=== PATIENT | male | born 1955 | race Caucasian/White ===

== ENCOUNTER 2019-06-17 08:10 | Day surgery (SDC) | payer MEDICARE, OTHER, SELFPAY ==
[2019-06-16 09:02] VITALS: BMI 22.9
[2019-06-17] MEDS: sodium chloride 0.9% 1,000 ML 30 ML (08:30)
[2019-06-17 08:32] VITALS: BP 114/75; PULSE 68; RESP 16; TEMP 36.6; O2SAT 96
--- NOTE | 2019-06-17 08:48 | ANES.PREANES ---
Pre-Anesthetic Assessment Pre-Anesthetic Assessment: Height/Weight: Height 1.83 m Weight 76.657 kg Temp Pulse Resp BP Pulse Ox 97.9 F 68 16 114/75 96 06/17/19 08:32 06/17/19 08:32 06/17/19 08:32 06/17/19 08:32 06/17/19 08:32 Preop Diagnosis: BE Proposed Procedure: Operation Date: 06/17/19 09:00 Proposed Procedures p EGD(Not Applicable) - Samuel Hoover MD Familial anesthetic complications: Mom was slow to wake Was Beta Reilly taken within 24 hours: Yes Last intake: Intake Last Liquid Date 06/16/19 Last Liquid Time 22:00 Last Solid Date 06/16/19 Last Solid Time 18:00 Last Intake: 18:30 Social: Social History: Tobacco (stop 4 yrs ago) and No alcohol Exam: Pre-Anes Outpt Exam: alert, oriented x 3, clear to auscultation bilaterally and regular rate & rhythm Airway: Submandibular: WNL Cervical ROM: WNL MP: 2 Pulmonary: Pulmonary: COPD CV/HEM: CV/HEM: Arrythmia and Palp Comments: tachycardia : : None reported Hepatic: Hepatic: None reported GI: GI: GERD Comments: controlled Metabolic: Metabolic: None reported Musc/skel: Musc/skel: Lower Back Pain and OA/DJD Comments: back surgery x2 Neuropsych: Neuropsych: None reported Anesthetic Plan: ASA status: II Anesthesia: Anesthesia Evaluation and MAC Risk of > 500 ml blood loss (7ml/kg in children): No PFSH Anesthesia PFSH: Medical History (Updated 06/16/19 @ 14:[address] LPN) GERD (gastroesophageal reflux disease) (Acute) Social History Smoking and tobacco status: current some day smoker Alcohol intake: never Data Anesthesia Cardiac Studies: No Data to Display
--- NOTE | 2019-06-17 09:12 | PM.HPUD ---
H&P update H&P Update: DATE OF SURGERY/PROCEDURE: 06/17/19 DATE H&P PERFORMED: 06/13/19 H&P UPDATE INFORMATION: H&P completed within last 30 days, No changes to prior documentation and H&P is in [facility] EMR on date indicated PLANNED PROCEDURE: Operation Date: 06/17/19 09:00 Proposed Procedures p EGD(Not Applicable) - Samuel Hoover MD Full H&P Perinent History: Medical/Surgical History: Medical History (Updated 06/13/19 @ 16:09 by Samuel Hoover MD) GERD (gastroesophageal reflux disease) (Acute) Family History: Family History (Updated 06/03/19 @ 09:35 by Ivone Zhu LPN) Brother Cancer PROSTATE CA Mother Cancer LUNG CA Other Hypertension Social History: Social History Smoking and tobacco status: current some day smoker Alcohol intake: never
[2019-06-17 09:26] VITALS: BP 105/70; PULSE 67; RESP 16; TEMP 36.2; O2SAT 97
--- NOTE | 2019-06-17 09:36 | ANE.PACU ---
 Inpatient post-anesthesia follow up: Airway intact: Yes Vital signs: Temperature 97.2 F Pulse Rate [Bilate ral Radial] 67 Respiratory Rate 16 Blood Pressure [Le ft Arm] 105/70 Pulse Oximetry 97 Oxygen Delivery Me thod Nasal Cannula Oxygen Flow Rate 2.0 Fraction of Inspir ed Oxygen Hydration adequate: Yes Nausea and vomiting: No Pain level: 1 Mental status: Baseline
[2019-06-17 09:37] VITALS: BP 108/77; PULSE 68; RESP 18; O2SAT 96
== END 2019-06-17 09:43 | disposition home or self-care (01) ==
PROVIDERS: Family Provider Family Medicine; PCP Internal Medicine; Visit Provider Internal Medicine
PROC: 0DJ08ZZ Inspection of Upper Intestinal Tract, Via Natural or Artificial Opening Endoscopic (ICD-10-PCS; CPT 43235; principal; 2019-06-17 09:00)
DX: K22.70 Barrett's esophagus without dysplasia (principal); K21.0 Gastro-esophageal reflux disease with esophagitis; K44.9 Diaphragmatic hernia without obstruction or gangrene; F17.210 Nicotine dependence, cigarettes, uncomplicated; Z82.49 Family history of ischemic heart disease and other diseases of the circulatory system; Z80.1 Family history of malignant neoplasm of trachea, bronchus and lung; Z80.42 Family history of malignant neoplasm of prostate
CPT/HCPCS: 12345; 43235; 96365; J0171; J2704; J7030

== ENCOUNTER 2019-10-03 09:24 | Outpatient (CLI) | payer MEDICARE, OTHER, SELFPAY ==
--- NOTE | 2019-10-03 09:33 | XR_ITS ---
WS: [id number] PROCEDURE: XR chest 2V* [id number] CLINICAL INFORMATION: HYPERHIDROSIS COMPARISON: June 16, 2013 FINDINGS: Heart: Normal cardiac silhouette. Lungs: Moderate chronic emphysematous changes. No acute pulmonary infiltrates. No focal pneumonia. Bones: Chronic right posterior rib fractures with callus formation. XR/XR chest 2V* [id number] IMPRESSION: 1. Moderate chronic emphysematous changes. No acute pulmonary infiltrates. 2. Chronic right posterior rib fractures with callus formation.
== END 2019-10-03 09:25 | disposition home or self-care (01) ==
PROVIDERS: Family Provider Family Medicine; PCP Nurse Practitioner Family; Visit Provider Nurse Practitioner Family
DX: R61 Generalized hyperhidrosis (principal); J43.9 Emphysema, unspecified
CPT/HCPCS: 71046

== ENCOUNTER 2019-11-09 06:58 | Outpatient (CLI) | payer MEDICARE, OTHER, SELFPAY ==
--- NOTE | 2019-11-09 07:08 | US_ITS ---
WS: [id number] ABDOMINAL ULTRASOUND REASON FOR EXAM: GENERALIZED ABD PAIN TECHNIQUE: Grayscale and Doppler ultrasound examination of the abdomen. FINDINGS: Pancreas: Within normal limits Abdominal aorta and IVC: Within normal limits. Liver: Liver measures 18.1 cm in length. Normal hepatopedal circulation. Gallbladder: Gallbladder wall thickness measures 0.2 cm. No gallstones identified. Common bile duct m easured 0.37 cm Left kidney: Left kidney measures 10.5 cm x 5.3 cm x 5.7 cm. Hydronephrosis no stones Right kidney: Right kidney measures 10.2 cm x 5.2 cm x 5.1 hydronephrosis no stones Spleen: Spleen measures 8.94 cm US/US abdomen complete* [id number] IMPRESSION: Normal abdominal survey by ultrasound.
== END 2019-11-09 06:59 | disposition home or self-care (01) ==
LOC: US 07:01
PROVIDERS: PCP Family Medicine; Visit Provider Nurse Practitioner Family
DX: R10.84 Generalized abdominal pain (principal)
CPT/HCPCS: 76700

== ENCOUNTER 2020-05-16 14:27 | Outpatient (CLI) | payer MEDICARE, OTHER, SELFPAY ==
--- NOTE | 2020-05-16 14:36 | XR_ITS ---
WS: [id number] SCREENING DEXA SCAN [place] CLINICAL INFORMATION: OSTEOPENIA OF LUMBAR SPINE COMPARISON: FINDINGS: The L1-L4 bone mineral density measures 1.002 g/cm2. This corresponds to a T score score of -1.8 and Z score of -1.1. Left femoral neck bone mineral density measures 0.902 g/cm2. This corresponds to a T score of -1.4 an d Z score of -0.6. Right femoral neck bone mineral density measures 0.907 g/cm2. This corresponds to a T score -1.3of an d Z score of -0.6. Mean femoral neck bone mineral density measures 0.905 g/cm2. This corresponds to a T score of -1.4 an d Z score of -0.6. XR/XR DEXA axial skeleton* [id number] IMPRESSION: Osteopenia Patient's FRAX calculated 10 year probability for major osteoporotic fracture i s 11.5 % and osteoporotic hip fracture is 2.7%.
== END 2020-05-16 14:28 | disposition home or self-care (01) ==
LOC: RADWPI 14:32
PROVIDERS: PCP Family Medicine; Visit Provider Nurse Practitioner Family
DX: M85.88 Other specified disorders of bone density and structure, other site (principal)
CPT/HCPCS: 77080

== ENCOUNTER 2020-07-16 07:02 | Outpatient (CLI) | payer MEDICARE, OTHER, SELFPAY ==
--- NOTE | 2020-07-16 07:05 | CT_ITS ---
WS: [id number] LDCT LUNG CANCER SCREENING TECHNIQUE: Noncontrast CT of the chest with coronal and sagittal reformatted images. CLINICAL INFORMATION: H/O TOBACCO USE COMPARISON: CT chest , September 2017, August 2016 DLP: 62.9 mGy.cm DIvol: 1.[address] scans at [facility] use at least one of these dose optimization techniques: automat ed exposure control; mA and/or kV adjustment per patient size (includes targeted exams where dose is matched to clinical indication); or iterative reconstruction. FINDINGS:4.3 mm noncalcified pulmonary nodule right lower lobe along the fissure is unchanged since . This is stable since 2018. Mild chronic emphysematous changes. No acute pulmonary infiltrates. No consolidation or pleural fluid . Fibrosis in the lung apices. Aortic calcification. No mediastinal or hilar lymphadenopathy. No axillary lymphadenopathy. Adrenal glands are normal. Normal GE junction. Mild chronic compression superior endplate T3 T6 and T12 unchanged. CT/CT lung screening [id number] IMPRESSION: LUNG-RADS: 2-Benign Appearance or Behavior FOLLOW UP: 12 Month: Continue annual screening with LDCT
== END 2020-07-16 07:03 | disposition home or self-care (01) ==
LOC: RAD 07:04
PROVIDERS: PCP Family Medicine; Visit Provider Nurse Practitioner Family
DX: Z12.2 Encounter for screening for malignant neoplasm of respiratory organs (principal); Z87.891 Personal history of nicotine dependence
CPT/HCPCS: 71271

== ENCOUNTER 2021-09-10 12:03 | Outpatient (CLI) | payer MEDICARE, OTHER, SELFPAY ==
--- NOTE | 2021-09-10 12:13 | CT_ITS ---
WS: [id number] LDCT LUNG CANCER SCREENING HISTORY: HX OF TOBACCO USE TECHNIQUE: Axial imaging performed from the apices to 1 cm below the costophrenic angles. Coronal and sagittal reformats are submitted with axial MIP series. All CT scans at [facility] use at least one of these dose optimization techniques: automated exposure control; mA and/or kV adjustment per patient size (includes targeted exams where dose is matched to clinical indication); or iterativ e reconstruction. DLP: 87.61 mGy.cm DIvol: Mean CTDIvol: 1.60 (mGy) COMPARISON: 07/14/2020 Diagnostic quality: Satisfactory Lung Nodules: Moderate biapical pleural thickening is stable. Again noted is a 4 mm nodule along the inferior RIGHT superior major fissure which is stable. No new mass or nodule. No endobronchial lesion s. Lungs: Hyperinflated lungs from emphysema. Heart: Normal size heart. No pericardial effusion. Mild scattered coronary artery atherosclerotic dina que. Other findings: Mild atherosclerosis thoracic aorta. Normal size pulmonary artery. T12 compression fracture superior endplate by 10%, No change. Additional mild compression deformities at T3 and T6. CT/CT lung screening [id number] IMPRESSION: LUNG-RADS: 2-Benign Appearance or Behavior FOLLOW UP: 12 Month: Continue annual screening with LDCT OTHER FINDINGS (S MODIFIER): None.
== END 2021-09-10 12:04 | disposition home or self-care (01) ==
LOC: RAD 12:06
PROVIDERS: PCP Family Medicine; Visit Provider Nurse Practitioner Family
DX: Z12.2 Encounter for screening for malignant neoplasm of respiratory organs (principal); Z87.891 Personal history of nicotine dependence
CPT/HCPCS: 71271

== ENCOUNTER 2022-09-05 09:17 | Outpatient (CLI) | payer MEDICARE, OTHER, SELFPAY ==
--- NOTE | 2022-09-05 09:31 | CT_ITS ---
WS: [id number] LDCT LUNG CANCER SCREENING TECHNIQUE: Noncontrast CT of the chest with coronal and sagittal reformatted images. CLINICAL INFORMATION: HX OF TOBACCO USE/ NICOTINE DEPENDENCE COMPARISON: CT September 10, 2021 DLP: 65.28 mGy.cm DIvol: Mean CTDIvol: 1.10 (mGy) All CT scans at [facility] use at least one of these dose optimization techniques: automat ed exposure control; mA and/or kV adjustment per patient size (includes targeted exams where dose is matched to clinical indication); or iterative reconstruction. FINDINGS: Stable 4 mm nodule along the inferior RIGHT major fissure. 4 mm nodule along the LEFT fissure. Modera te chronic emphysematous changes. Hyperinflation. Coronary calcification. Aortic calcification. Azul l caliber thoracic aorta. No mediastinal or hilar lymphadenopathy. Normal GE junction. Adrenal glands are normal. Stable biapical fibrosis. Mild compression deformities at T12, T6, T3 unchanged. CT/CT lung screening [id number] IMPRESSION: LUNG-RADS: 2-Benign Appearance or Behavior FOLLOW UP: 12 Month: Continue annual screening with LDCT
== END 2022-09-05 09:18 | disposition home or self-care (01) ==
LOC: RAD 09:22
PROVIDERS: PCP Electrodiagnostic Medicine; Visit Provider Electrodiagnostic Medicine
DX: Z12.2 Encounter for screening for malignant neoplasm of respiratory organs (principal); Z87.891 Personal history of nicotine dependence
CPT/HCPCS: 71271

== ENCOUNTER 2023-07-06 09:39 | Outpatient (CLI) | payer MEDICARE, OTHER, SELFPAY ==
[2023-07-06 09:52] VITALS: BMI 23.0
--- NOTE | 2023-07-06 09:52 | ECG_ITS ---
[facility] Test Date: 2023-07-06 Pat Name: Fernandez Espinoza Department: Room: Gender: Male [employer] Adf Developer: Belinda VazquezChay : 1955 Requested By: Goyo Dee Order Number: [id number] William MD: Jese Alfonso M.D. Interpretive Statements NAME OF STUDY: LEXISCAN SESTAMIBI STRESS TEST INDICATION: [Chest Pain, ] Procedure: At the baseline, the blood pressure was 122/80 mmHg with a heart rate of 61 bpm. The electrocardiogram showed normal sinus rhythm, normal axis with normal ST and T's. The Lexiscan was infused over a period of 20 seconds. A total of 0.4 mg of Lexiscan was infused. The stress phase was continued for a total of 5 minutes. Heart rate was at the end of stress phase was 95 bpm and a blood pressure of 134/76 mmHg. The EKG at the peak infusion revealed normal sinus rhythm with no significant ST-T wave changes. Sestamibi was injected 20 seconds after the Lexiscan infusion. Blood pressure at the end of recovery phase was 137/79 mmHg with a heart rate of 89 bpm. Conclusion: 1. Normal EKG response to Lexiscan infusion 2. No Lexiscan induced chest pain or cardiac arrhythmia. 3. Normal blood pressure and heart rate response. 4. Sestamibi/sestamibi perfusion scan pending; see separate report. Electronically Signed On 07-17-2023 11:55:59 HAND QUILTER by Jese Alfonso M.D. [email or web address]
--- NOTE | 2023-07-06 09:52 | NMCV_ITS ---
NM daniel perf SPECT r/s* [id number] Fernandez Espinoza Age: 68 Gender: M : 1955 Exam Date: 07/06/2023 10:41 Ordering Phys: Goyo Cain DO Technologist: TAMAR Tellez Exam Location: [facility] Indications: CHEST PAIN STRESS TEST Please see separate stress test report in [facility] for full findings IMAGE PROTOCOL Rest/Stress 1 Lexiscan Day Radiopharmaceutical Dose (mCi) Administration Site Administered by Rest: Tc-99m 10.7 IV TAMAR Gates Sestamibi Stress:Tc-99m 32.5 IV TAMAR Gates Sestamibi Rest: 06-Jul-2023 60 Discovery 630 Stress: 06-Jul-2023 30 Discovery 630 0.4mg Lexiscan. Images obtained in supine and prone position. SPECT RESULTS Technical Quality: Excellent Raw Data Analysis: Normal Image Corrections: No attenuation or motion correction applied Summed Stress Score: 3 Summed Rest Score: 3 Summed Difference Score: 1 PERFUSION FINDINGS There is a medium sized area of fixed perfusion defect noted in the inferolateral wall. This is consistent with medium sized area of prior infarct with no significant radha-infarct ischemia. FUNCTIONAL RESULTS (calculated via Gated SPECT) Stress Image LV EF (%): 64 Stress EDV (mL):70 TID: 1.02 Stress ESV (mL):25 FUNCTIONAL FINDINGS: There is normal left ventricular systolic function. IMPRESSIONS 1. 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 No evidence of ischemia 2. LV systolic function is normal Jese Alfonso MD (Electronically Signed) Final Date: 06 July 2023 14:14 S
[2023-07-06] MEDS: regadenoson 0.4 Mg/5 ml Syringe IVP (11:16)
[2023-07-06 11:24] VITALS: BP 137/79; PULSE 89
== END 2023-07-06 09:40 | disposition home or self-care (01) ==
LOC: CDL 09:40
PROVIDERS: PCP Electrodiagnostic Medicine; Visit Provider Electrodiagnostic Medicine
DX: R07.9 Chest pain, unspecified (principal)
CPT/HCPCS: 36415; 78452; 93017; 96374; A9500; J2785

== ENCOUNTER 2023-07-21 10:50 | Outpatient (CLI) | payer MEDICARE, OTHER, SELFPAY ==
[2023-07-21 11:01] VITALS: PULSE 86; RESP 18; O2SAT 98
[2023-07-21] MEDS: albuterol 2.5 mg/3 mL Neb INHALATION (11:01)
[2023-07-21 11:06] VITALS: PULSE 85
== END 2023-07-21 10:51 | disposition home or self-care (01) ==
PROVIDERS: PCP Electrodiagnostic Medicine; Visit Provider Electrodiagnostic Medicine
DX: J44.9 Chronic obstructive pulmonary disease, unspecified (principal)
CPT/HCPCS: 94060; 94726; 94729; J7613

== ENCOUNTER 2023-07-29 14:55 | Emergency (ER) | payer MEDICARE, OTHER, SELFPAY ==
[2023-07-29 14:59] VITALS: BP 130/75; PULSE 95; RESP 18; TEMP 36.3; O2SAT 98
--- NOTE | 2023-07-29 15:05 | XRR_ITS ---
PROCEDURE INFORMATION: Exam: XR Right Shoulder Exam date and time: 07/29/2023 3:19 PM Age: 68 years old Clinical indication: Injury or trauma; Other: Tree fell on PT; Blunt trauma (contusions or hematomas); Injury details: Right shoulder injury, states he was cutting trees and one fell knocking him to the ground. PT states the shoulder felt dislocated and he feels like he popped it part of the way back in TECHNIQUE: Imaging protocol: Radiologic exam of the right shoulder. Views: 2 or more views. COMPARISON: [place] [id number] 07/29/2023 3:19 PM FINDINGS: Bones/joints: No acute fracture or diislocation identified. There is narrowing of the acromiohumeral space which could reflect chronic rotator cuff disease. Right posterolateral 7th and 8th rib fracture deformities similar to 06/29/2023 are noted. Lungs: Visualized portions of the right lung are grossly clear. Soft tissues: No peritendinous calcification observed. XR/XR shoulder RT min 2V* [id number] IMPRESSION: No acute osseous abnormality identified.
--- NOTE | 2023-07-29 15:13 | XRR_ITS ---
PROCEDURE INFORMATION: Exam: XR Right Humerus Exam date and time: 07/29/2023 3:19 PM Age: 68 years old Clinical indication: Injury or trauma; Other: Tree fell on PT; Blunt trauma (contusions or hematomas); Arm, upper; Injury details: Right shoulder injury, states he was cutting trees and one fell knocking him to the ground. PT states the shoulder felt dislocated and he feels like he popped it part of the way back in TECHNIQUE: Imaging protocol: Radiologic exam of the right humerus. Views: 2 or more views. COMPARISON: CR XR shoulder RT min 2V* [id number] 07/29/2023 3:19 PM FINDINGS: Bones/joints: No acute fracture or diislocation identified. Soft tissues: No acute soft tissue abnormality identifiedd. XR/[place] [id number] IMPRESSION: No acute findings.
[2023-07-29] MEDS: HYDROcodone-acetaminophen 7.5-325 mg Tablet 1 TAB PO (15:17)
--- NOTE | 2023-07-29 15:21 | W.ED.EXTPRO ---
HPI - Extremity Problem General: Chief complaint: Extremity Injury, Upper Stated complaint: right shoulder/arm pain Time Seen by Provider: 07/29/23 15:05 Source: patient Mode of arrival: ambulatory Limitations: no limitations History of Present Illness: 68-year-old male states that he is cutting a tree down [place] instructing fell onto his right shoulder states that he has right shoulder pain with any movement denies hitting his head denies any neck pain he rates his pain an 8 out of 10 currently. He states that he felt like the shoulder is joint and felt like it popped back in and felt like clunk after the injury Associated symptoms: Deny chest pain, fever(s) or rash Review of Systems Const: Denies: fever(s) or chills ENMT: Denies: throat pain or dental pain Card: Denies: chest pain Resp: Denies: dyspnea GI: Denies: abdominal pain, nausea, vomiting or diarrhea Musc: Reports: extremity pain; Denies: neck pain or back pain Skin/Breast: Denies: rash Neuro: Denies: headache(s) PFSH ED PFSH: Medical History GERD (gastroesophageal reflux disease) Family History Brother Cancer PROSTATE CA Mother Cancer LUNG CA Other Hypertension Social History Smoking and tobacco/nicotine status: former use of tobacco/nicotine Alcohol intake: never Substance/Drug Use: never Physical Exam Const: COMMON NORMALS: no acute distress, patient oriented x3 and healthy appearing HENMT: COMMON NORMALS: normocephalic and atraumatic HEAD & SCALP: normocephalic and atraumatic Eye: COMMON NORMALS: conjunctivae normal CONJUNCTIVA: Yes conjunctivae normal Neck/C-Spine: COMMON NORMALS: full ROM and supple CERVICAL SPINE: No Cervical spine tenderness Chest: COMMONS NORMALS: normal inspection of the chest Resp: COMMON NORMALS: normal respiratory effort, No retractions, No use of accessory muscles and clear to auscultation bilaterally AUSCULTATION: clear to auscultation bilaterally Cardio: COMMON NORMALS: regular rate, regular rhythm and No murmurs present (Cardio) RATE: regular rate RHYTHM: regular rhythm Extremity: NARRATIVE EXTREMITY EXAM: Tenderness over right shoulder distal pulse sensation intact he has pain with any range of movement Neuro: COMMON NORMALS: patient oriented x3, moves all extremities and no focal motor deficits Psych: COMMON NORMALS: mental status grossly normal, Normal thought process present and cooperative THOUGHT PROCESS: Normal thought process present Skin: COMMON NORMALS: no rashes or lesions noted and no wounds GENERAL SKIN EXAM: no rashes or lesions noted Course Vital Signs: Vital signs: Vital Signs Temperature 97.4 F L 07/29/23 14:59 Pulse Rate 95 07/29/23 14:59 Respiratory Rate 18 07/29/23 14:59 Blood Pressure 130/75 07/29/23 14:59 Pulse Oximetry 98 07/29/23 14:59 Oxygen Delivery Me thod Room Air 07/29/23 14:59 MDM - Extremity (Nontraumatic) Medical Decision Making Patient presents with right shoulder injury with possible dislocation that he spontaneously relocated x-ray shows no fractures he is in a sling will get him follow-up with orthopedics we will prescribe him pain meds. Medical Records I reviewed the patient's medical records. Lab Data Radiology Impressions Shoulder X-Ray 07/29/23 15:05 IMPRESSION: No acute osseous abnormality identified. Humerus X-Ray 07/29/23 15:13 IMPRESSION: No acute findings. All radiology interpretation(s) finalized by discharge Discharge Plan Discharge Patient Disposition: Home Clinical Impression: Injury of right shoulder Condition: Stable Prescriptions: New hydrocodone-acetaminophen 5-325 mg tablet 1 tab PO Q6H PRN (Reason: pain) Qty: 14 0RF No Action lansoprazole [Prevacid] 30 mg capsule,delayed release(DR/EC) 30 mg PO BID tramadol 50 mg tablet 50 mg PO BID PRN (Reason: Pain) Discharge Orders: Discharge ED (Routine); Ordered 07/29/23 Ordered By: Gene Lomeli Referrals: Goyo Cain DO [Primary Care Provider] - 4-7 days Discharge Diet: Advance as tolerated Discharge Activity: Resume usual activity Patient Instructions: Shoulder Sprain (ED) Coding Level of Care Code ED Fractionation Supervisor for Erik Caceres
--- NOTE | 2023-07-29 18:10 | DCPLANNER ---
Message sent to ortho for follow up --shoulder sprain
== END 2023-07-29 16:02 | disposition home or self-care (01) ==
PROVIDERS: Emergency Provider Emergency Medicine; PCP Electrodiagnostic Medicine
DX: S49.91XA Unspecified injury of right shoulder and upper arm, initial encounter (principal); Z87.891 Personal history of nicotine dependence; W20.8XXA Other cause of strike by thrown, projected or falling object, initial encounter
CPT/HCPCS: 73030; 73060; 99283

== ENCOUNTER → 2023-08-07 08:41 | Outpatient (BNVA) | payer MEDICARE, OTHER, SELFPAY | PROVIDERS: PCP Electrodiagnostic Medicine; Referring Provider Emergency Medicine; Visit Provider Physician Assistant | DX: S43.004A Unspecified dislocation of right shoulder joint, initial encounter; X58.XXXA Exposure to other specified factors, initial encounter | CPT/HCPCS: 73030; 99203 ==

== ENCOUNTER 2023-08-19 07:31 | Outpatient (RCR) | payer MEDICARE, OTHER, SELFPAY | END 2023-08-23 23:59 | disposition home or self-care (01) | LOC: SPT 07:31 | PROVIDERS: Visit Provider Student in an Organized Health Care Education/Training Program | DX: S43.004D Unspecified dislocation of right shoulder joint, subsequent encounter (principal); X58.XXXD Exposure to other specified factors, subsequent encounter | CPT/HCPCS: 97110; 97161 ==

== ENCOUNTER 2023-08-24 06:00 | Outpatient (RCR) | payer MEDICARE, OTHER, SELFPAY | END 2023-09-22 23:59 | disposition home or self-care (01) | LOC: SPT 06:00 | PROVIDERS: Visit Provider Student in an Organized Health Care Education/Training Program | DX: S43.004D Unspecified dislocation of right shoulder joint, subsequent encounter (principal); X58.XXXD Exposure to other specified factors, subsequent encounter | CPT/HCPCS: 97110; G0283 ==

== ENCOUNTER 2023-09-07 10:40 | Outpatient (CLI) | payer MEDICARE, OTHER, SELFPAY ==
--- NOTE | 2023-09-07 10:49 | CT_ITS ---
WS: [id number] LDCT LUNG CANCER SCREENING TECHNIQUE: Noncontrast CT of the chest with coronal and sagittal reformatted images. CLINICAL INFORMATION: HX OF TOBACCO USE COMPARISON: 09/05/22 DLP: 66.91 mGy.cm DIvol: Mean CTDIvol: 1.20 (mGy) All CT scans at [facility] use at least one of these dose optimization techniques: automat ed exposure control; mA and/or kV adjustment per patient size (includes targeted exams where dose is matched to clinical indication); or iterative reconstruction. FINDINGS: Biapical fibrosis. No acute pulmonary infiltrates. Moderate chronic emphysematous changes. Hyperinfla tion. Coronary calcification. Aortic calcification. Normal caliber thoracic aorta. No mediastinal or hilar lymphadenopathy. Stable 4 mm nodule along the inferior RIGHT major fissure. Stable 4 mm nodule along the LEFT fissure. Normal GE junction. Adrenal glands are normal. Mild compression deformities at T12, T6, T3 unchanged . IMPRESSION: CT/CT lung screening [id number] LUNG-RADS: 2-Benign Appearance or Behavior FOLLOW UP: 12 Month: Continue annual screening with LDCT
== END 2023-09-07 10:41 | disposition home or self-care (01) ==
LOC: RAD 10:41
PROVIDERS: PCP Electrodiagnostic Medicine; Visit Provider Electrodiagnostic Medicine
DX: Z87.891 Personal history of nicotine dependence (principal); Z12.2 Encounter for screening for malignant neoplasm of respiratory organs
CPT/HCPCS: 71271

== ENCOUNTER → 2023-09-15 07:50 | Outpatient (BNVA) | payer MEDICARE, OTHER, SELFPAY | PROVIDERS: PCP Electrodiagnostic Medicine; Visit Provider Physician Assistant | DX: S43.004A Unspecified dislocation of right shoulder joint, initial encounter (principal); S46.001A Unspecified injury of muscle(s) and tendon(s) of the rotator cuff of right shoulder, initial encounter; X58.XXXA Exposure to other specified factors, initial encounter | CPT/HCPCS: 73030; 99213 ==

== ENCOUNTER 2023-10-13 08:28 | Outpatient (CLI) | payer MEDICARE, OTHER, SELFPAY ==
--- NOTE | 2023-10-13 08:30 | IR_ITS ---
WS: [id number] SHOULDER ARTHROGRAM RIGHT Fluoroscopic guided right shoulder arthrogram CLINICAL INFORMATION: r/o labral tear PROCEDURE: The procedure including risks, benefits and complications were discussed with the patient, who agreed to proceed. Using sterile technique, the patient was prepped and draped in the usual ster ile fashion. After 1% lidocaine injection using fluoroscopic guidance, a 22-gauge spinal needle was a dvanced into the glenohumeral joint. Approximately 13 ml of a solution containing 10 ml normal saline , 5 ml Omnipaque 240, 5 ml 1% lidocaine, and 0.1 ml gadolinium was administered. No immediate complic ations. FLUOROSCOPY TIME: 1min [id number] # of spot films: 3 IR/IR arthrogram shoulderRT [id number] IMPRESSION: 1. Uncomplicated fluoroscopic-guided right shoulder arthrogram. 2. Contrast extends into the subacromial and subdeltoid space compatible with rotator cuff tear. 3. MRI to follow.
--- NOTE | 2023-10-13 08:46 | MR_ITS ---
WS: [id number] MRI RIGHT SHOULDER ARTHROGRAM TECHNIQUE: Sagittal T2, coronal T1, T2 and proton density imaging. Axial gradient PDE imaging. Post a rthrogram imaging CLINICAL INFORMATION: S43.004A - Unspecified dislocation of right shoulder join... COMPARISON: 08/25/2013 FINDINGS: High-grade complete tear of the supraspinatus with chronic thinning. Retraction nearly to t he level of the glenohumeral joint. Contrast extending into the subacromial subdeltoid bursa. Diffuse chronic thinning of the infraspinatus with high-grade distal tear and a few intact fibers distally. This is new from previous. Normal teres minor. Advanced arthritis of the AC joint. Mild downsloping acromion. Slight subacromial spurring. Advanced degenerative arthritis of the glenohumeral articulation. Subacromial and subdeltoid fluid. Tear of the transverse humeral ligament. Medial dislocation biceps tendon from the bicipital groove. Small joint effusion. Intra-articular biceps tendon appears intact. Partial intrasubstance tear invol ving the subscapularis. Biceps labral anchor appears intact. Degenerative fraying of the glenoid labr um. Tear of the anterior superior labrum. Posterior labrum appears intact. MR/MR shoulder RT wo/w con [id number] IMPRESSION: 1. High-grade complete tear of the supraspinatus with retraction measuring dolores roximately 2.8 cm nearly to the level of the glenohumeral joint. Tiny infraspin atus tendon with some intact fibers distally. Advanced chronic thinning of the infraspinatus with high-grade distal tear. Contrast extends into the subacromia l subdeltoid bursa. 2. Medial dislocation of biceps tendon from the bicipital groove is new from p revious with tear of the transverse humeral ligament. Small intrasubstance tear of subscapularis tendon. 3. Small tear of the anterior superior labrum. Posterior labrum appears intact . Degenerative fraying of the labrum. 4. Advanced degenerative arthritis AC joint with fluid and edema. Narrowing of the subacromial space.
[2023-10-13] MEDS: gadobenate dimeglumine 20 mL vial XX (11:27)
[2023-10-13] MEDS: iohexol 240 mg/mL 50 mL Btl INTRA-ARTI (11:29)
== END 2023-10-13 08:29 | disposition home or self-care (01) ==
LOC: RAD 08:28
PROVIDERS: PCP Electrodiagnostic Medicine; Visit Provider Student in an Organized Health Care Education/Training Program
DX: M75.122 Complete rotator cuff tear or rupture of left shoulder, not specified as traumatic (principal); M66.821 Spontaneous rupture of other tendons, right upper arm; S43.081D Other subluxation of right shoulder joint, subsequent encounter; M19.011 Primary osteoarthritis, right shoulder
CPT/HCPCS: 23350; 73223; 77002; A9577; Q9966